=== PATIENT | male | born 1985 | race Caucasian/White ===

== ENCOUNTER 2019-01-04 10:33 | Emergency (ER) | payer MEDICAID, OTHER ==
[~2019-01-04] VITALS: Ht 167.6 cm; Wt 73.0 kg
[2019-01-04 12:41] VITALS: BP 130/80
== END 2019-01-04 12:42 | disposition home or self-care (01) ==
LOC: ER 11:56
DX: S22.31XA Fracture of one rib, right side, initial encounter for closed fracture (principal); F15.10 Other stimulant abuse, uncomplicated; V19.49XA Pedal cycle driver injured in collision with other motor vehicles in traffic accident, initial encounter; Y93.89 Activity, other specified; Y92.89 Other specified places as the place of occurrence of the external cause; Y99.8 Other external cause status; Z87.891 Personal history of nicotine dependence
CPT/HCPCS: 71101; 99283